=== PATIENT | female | born 1990 | race Caucasian/White ===

== ENCOUNTER 2016-07-15 09:25 | Emergency (ER) | payer OTHER, BC | END 2016-07-15 10:38 | disposition home or self-care (01) | LOC: ER 09:25 | DX: M79.1 Myalgia (principal); Z88.2 Allergy status to sulfonamides; V89.9XXA Person injured in unspecified vehicle accident, initial encounter | CPT/HCPCS: 72040; 73080-LT; 73560-RT; 99284; A9270-GY ==